=== PATIENT | female | born 2000 | race American Indian/Alaskan Native ===

== ENCOUNTER 2019-06-11 08:05 | Outpatient (CLI) | payer MEDICAID ==
[2019-06-11] MEDS ORDERED: LACTATED RINGERS 500 ML IV ONE (08:12)
[2019-06-11 08:28] VITALS: BP 105/55
[2019-06-11] MEDS ORDERED: BRETHINE SUB-Q ONE (09:17)
[2019-06-11 10:13] LABS: Bacteria,Urine 1+ /HPF (Negative); Bilirubin,Urine NEG (Negative); Blood,Urine NEG (Negative); Color,Urine Yellow (Yellow); Mucus,Urine FEW /HPF; Protein,Urine <15 mg/dL mg/dL (Negative); RBC,Urine < 1.0 /HPF (0.0-6.0); Urobilinogen,Urine < 2.0 mg/dL (<2.0)
== END 2019-06-11 11:15 | disposition home or self-care (01) ==
LOC: TRG 08:05
PROVIDERS: ATTEND Obstetrics & Gynecology
DX: O62.9 Abnormality of forces of labor, unspecified (principal); O26.893 Other specified pregnancy related conditions, third trimester; R10.9 Unspecified abdominal pain; O99.513 Diseases of the respiratory system complicating pregnancy, third trimester; J45.909 Unspecified asthma, uncomplicated; Z3A.30 30 weeks gestation of pregnancy
CPT/HCPCS: 59025; 81001; 96372; J3105; J7120; 96360

== ENCOUNTER 2019-06-15 10:34 | Outpatient (CLI) | payer MEDICAID | END 2019-06-15 13:03 | disposition home or self-care (01) | LOC: LAB 10:34 → TRG 12:35 → LAB 13:03 | PROVIDERS: ATTEND Nurse Practitioner Women's Health | DX: O36.0130 Maternal care for anti-D [Rh] antibodies, third trimester, not applicable or unspecified (principal); Z3A.31 31 weeks gestation of pregnancy | CPT/HCPCS: 86850; 86900; 86901; 96372; J2790 ==

== ENCOUNTER 2019-08-03 17:51 | Outpatient (CLI) | payer MEDICAID ==
[2019-08-03 18:27] VITALS: BP 129/72
[2019-08-03] MEDS ORDERED: oxyCODONE /ACETAMINOPHEN 5-325MG TAB PO PRN (19:02)
== END 2019-08-03 19:33 | disposition home or self-care (01) ==
LOC: TRG 17:51
PROVIDERS: ATTEND Obstetrics & Gynecology
DX: O26.893 Other specified pregnancy related conditions, third trimester (principal); M54.9 Dorsalgia, unspecified; R10.2 Pelvic and perineal pain; R20.2 Paresthesia of skin; O47.1 False labor at or after 37 completed weeks of gestation; O99.013 Anemia complicating pregnancy, third trimester; D64.9 Anemia, unspecified; Z3A.38 38 weeks gestation of pregnancy; Z87.891 Personal history of nicotine dependence
CPT/HCPCS: 99212; G0463

== ENCOUNTER 2019-08-10 20:08 | Outpatient (CLI) | payer MEDICAID ==
[2019-08-10 20:23] VITALS: BP 121/66
== END 2019-08-10 21:15 | disposition home or self-care (01) ==
LOC: TRG 20:08
PROVIDERS: ATTEND Obstetrics & Gynecology
DX: Z53.9 Procedure and treatment not carried out, unspecified reason (principal)
CPT/HCPCS: Q0177

== ENCOUNTER 2019-08-15 06:41 | Outpatient (CLI) | payer MEDICAID ==
[2019-08-15 07:33] VITALS: BP 123/68
== END 2019-08-15 09:20 | disposition home or self-care (01) ==
LOC: TRG 06:41
PROVIDERS: ATTEND Obstetrics & Gynecology
DX: O26.893 Other specified pregnancy related conditions, third trimester (principal); R10.9 Unspecified abdominal pain; Z3A.40 40 weeks gestation of pregnancy

== ENCOUNTER 2019-08-17 19:09 | Outpatient (CLI) | payer MEDICAID ==
[2019-08-17 19:22] VITALS: BP 143/83
== END 2019-08-17 21:45 | disposition home or self-care (01) ==
LOC: TRG 19:09
PROVIDERS: ATTEND Obstetrics & Gynecology
DX: O26.893 Other specified pregnancy related conditions, third trimester (principal); M54.9 Dorsalgia, unspecified; Z3A.40 40 weeks gestation of pregnancy
CPT/HCPCS: 59025; Q0177

== ENCOUNTER 2019-08-18 03:51 | Inpatient (IN) | payer MEDICAID ==
[2019-08-18] MEDS ORDERED: BUTORPHANOL 2 MG/1 ML INJ IV PRN (04:37)
[2019-08-18] MEDS ORDERED: AMPICILLIN/NS 2 GM/100 ML 2 GM/100 ML BAG IV ONE (04:38)
[2019-08-18 05:05] LABS: Hematocrit 34.9 % (30.3-42.9); Hemoglobin 11.2 gm/dl (10.1-14.3); Mean Corpuscular HGB Conc 32 % (30-34); Mean Corpuscular Volume 82 fl (79-97); Platelet Count 153 K/mm3 (140-440); Red Blood Count 4.28 M/mm3 (3.65-5.03); Red Cell Distribution Width 15.4 % (13.2-15.2)
[2019-08-18] MEDS: LACTATED RINGERS 1,000 ML IV SCH ×2 (05:37→17:19)
[2019-08-18] MEDS ORDERED: ePHEDrine SULFATE 50 MG/1 ML INJ IV PRN (06:30)
[2019-08-18] MEDS ORDERED: NALOXONE 2 MG/2 ML INJ IV PRN (06:30)
[2019-08-18] MEDS ORDERED: ePHEDrine SULFATE 50 MG/1 ML INJ ONE (06:32)
--- NOTE | 2019-08-18 06:32 | Anesthesia Consultation ---
Anesthesia Consult and Med Hx Date of service: 08/18/19 - Airway Anesthetic Teeth Evaluation: Good ROM Head & Neck: Adequate Mental/Hyoid Distance: Adequate Mallampati Class: Class II Intubation Access Assessment: Probably Good - Pulmonary Exam CTA: Yes - Cardiac Exam Cardiac Exam: RRR - Pre-Operative Health Status ASA Pre-Surgery Classification: ASA2 Proposed Anesthetic Plan: Epidural - Pulmonary Hx Smoking: No Hx Asthma: Yes Hx Respiratory Symptoms: No SOB: No COPD: No Home Oxygen Therapy: No Hx Pneumonia: No Hx Sleep Apnea: No - Cardiovascular System Hx Hypertension: No Hx Coronary Artery Disease: No Hx Heart Attack/AMI: No Hx Angina: No Hx Percutaneous Transluminal Coronary Angioplasty (PTCA): No Hx Cardia Arrhythmia: No Hx Pacemaker: No Hx Internal Defibrillator: No Hx Valvular Heart Disease: No Hx Heart Murmur: No Hx Peripheral Vascular Disease: No - Central Nervous System Hx Neuromuscular Disorder: No Hx Seizures: No CVA: No Hx Back Pain: No Hx Psychiatric Problems: No - Gastrointestinal Hx Ulcer: No Hx Gastroesophageal Reflux Disease: No - Endocrine Hx Renal Disease: No Hx End Stage Renal Disease: No Hx Cirrhosis: No Hx Liver Disease: No Hx Insulin Dependent Diabetes: No Hx Non-Insulin Dependent Diabetes: No Hx Thyroid Disease: No Hx Hypothyroidism: No Hx Hyperthyroidism: No - Hematic Hx Anemia: Yes (With current ) Hx Sickle Cell Disease: No - Other Systems Hx Alcohol Use: No Hx Substance Use: No Hx Cancer: No Hx Obesity: No
[2019-08-18] MEDS: fentaNYL-BUPIV 2 MCG/ML-0.125% 200 MCG/100 ML BAG EPIDURAL SCH ×2 (08:01→15:38)
[2019-08-18] MEDS: AMPICILLIN/NS 1 GM/50 ML 1 GM/50 ML BAG IV SCH ×2 (11:01→15:45)
--- NOTE | 2019-08-18 11:48 | History and Physical Report ---
History of Present Illness Date of examination: 08/18/19 Date of admission: 08/18/19 04:53 Chief complaint: Intense labor pains History of present illness: Kylah Fontanez is a 18yo AA Fe ROBERT 08/14/2019 (LMP) 40weeks 4 days who presents today in active labor. Pt initiated late care with [facility] at 16w 4d. This is a teen . She is obese with BMI 38.3. She has a known hx of Asthma (last asthma attack over 4 years ago). She received Rhogam for RH negative status on 06/15/19. Pt took D3 for vitamin D deficiency. She had an elevated 1 hr GTT 160 followed by a normal 3hr GTT (97, 158, 111, 109). 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 denies: smoking, alcohol abuse, prescription drug abuse, IV drug use - Obstetrical History Expected Date of Delivery: 08/14/19 Actual Gestation: 40 Week(s) 4 Day(s) : 3 Para: 0 Hx # Term Pregnancies: 0 Number of Pregnancies: 0 Spontaneous Abortions: 2 Induced : 0 Number of Living Children: 0 Medications and Allergies Allergies Allergy/AdvReac Type Severity Reaction Status Date / Time No Known Allergies Allergy Verified 08/18/19 04:36 Home Medications Medication Instructions Recorded Confirmed Last Taken Type Vitamin 1 tab PO DAILY 08/15/19 08/17/19 08/15/19 07:00 History Iron 1 tab PO DAILY 08/17/19 08/17/19 1 Week Ago History ~08/10/19 1 tab Active Meds: Active Medications Butorphanol Tartrate (Stadol) 2 mg IV Q2H PRN PRN Reason: Labor Pain Last Admin: 08/18/19 05:31 Dose: 2 mg Documented by: Ephedrine Sulfate (Ephedrine Sulfate) 10 mg IV Q2M PRN PRN Reason: Hypotension Lactated Ringer's (Lactated Ringers) 1,000 mls @ 125 mls/hr IV DIRECT SEAN Last Admin: 08/18/19 05:37 Dose: 125 mls/hr Documented by: Ampicillin Sodium (Ampicillin/Ns 1 Gm/50 Ml) 1 gm in 50 mls @ 100 mls/hr IV Q4HR SEAN; Protocol Last Admin: 08/18/19 11:01 Dose: 100 mls/hr Documented by: Fentanyl/Bupivacaine/Sodium Chlor (Fentanyl-Bupiv 2 Mcg/Ml-0.125%) 200 mcg in 100 mls @ 12 mls/hr EPIDURAL TITR SEAN; Protocol Last Admin: 08/18/19 08:01 Dose: 12 mls/hr Documented by: Oxytocin/Sodium Chloride (Pitocin/Ns 30 Unit/500ml) 30 units in 500 mls @ 4 mls/hr IV TITR SEAN; Protocol Naloxone HCl (Naloxone) 0.2 mg IV Q5M PRN PRN Reason: Respiratory sedation Review of Systems Eyes: normal appearance Cardiovascular: no chest pain, no shortness of breath Respiratory: no shortness of breath Breasts: normal Gastrointestinal: no nausea, no vomiting, no diarrhea, no constipation Genitourinary: normal appearance, contractions, no leakage of fluid, no genital sores Integumentary: no rash, no sores, no lesions - Vital Signs Vital signs: Vital Signs Pulse BP 91 H 147/99 08/18/19 05:05 08/18/19 05:05 Temp Pulse Resp BP Pulse Ox 97.9 F 80 18 118/57 97 08/18/19 07:59 08/18/19 11:39 08/18/19 07:59 08/18/19 11:28 08/18/19 11:39 - Physical Exam Breasts: Positive: normal Cardiovascular: Regular rate, Normal S1, Normal S2, No murmurs Lungs: Positive: Clear to auscultation, Normal air movement Abdomen: Positive: normal appearance, normal bowel sounds Genitourinary (Female): Positive: normal external genitalia, normal perenium Vulva: both: normal Vagina: Positive: other (Clear fluid noted with exam) Uterus: Positive: enlarged (gravid) Anus/Rectum: Positive: normal perianal skin Extremities: Positive: normal Deep Tendon Reflex Grade: Normal +2 - Obstetrical FHR: auscultation normal Uterine Contraction Monitor Mode: External Cervical Dilatation: 6 (4 on admission) Cervical Effacement Percentage: 80 station: -2 Uterine Contraction Frequency (min): 5-7 Uterine Contraction Pattern: Regular Uterine Tone Measurement Phase: Resting Uterine Contraction Intensity: Moderate Results Result Diagrams: 08/18/19 04:20 Abnormal lab results 08/18/19 Range/Units 04:20 WBC 11.3 H (4.5-11.0) K/mm3 MCH 26 L (28-32) pg RDW 15.4 H (13.2-15.2) % All other labs normal. Assessment and Plan A: IUP at 40w4d Active labor SROM 08/18 @06:51, clear Category 1 tracing Comfortable with epidural GBS Positive P: Routine labor orders GBS prophylaxis Pitocin augmentation Anticipate
[2019-08-18] MEDS ORDERED: OXYTOCIN DRIP 30 UNITS/500 ML BAG IV SCH (12:00)
[2019-08-18] MEDS ORDERED: OXYTOCIN 20 UNIT/1000ML DRIP 20,000 MILLIUNITS/1,000 ML BAG IV ONE (15:31)
--- NOTE | 2019-08-18 20:17 | Procedure Note ---
OB Delivery Note - Delivery Date of Delivery: 08/18/19 (19:51) Surgeon: KAILA CAMACHO ([place]) Estimated blood loss: 300cc - Vaginal Delivery presentation: vertex Delivery position: OA Intrapartum events: meconium (Thick) Delivery induction: none Delivery augmentation: rupture of membranes (AROM of forebag at the start of pushing), pitocin Delivery monitor: external FHT, external uterine Route of delivery: (19:51) Delivery placenta: spontaneous (19:53) Delivery cord: 3 umbilical vessels Episiotomy: none Delivery laceration: 1st degree (Small; approximates well. Left unrepaired) Anesthesia: epidural Delivery comments: viable female infant SOCORRO position at 19:51. Cord clamped, cut, and limp non-vigorous infant immediately to prewarmed RW for assessment by MIGEL nurse, NICU, and RT for thick meconium stained fluid. Cord blood collected per protocol. Spontaneous brar delivery of intact meconium stained placenta at 1 9:53. Boggy uterus massaged firm. Approximately 100cc clear urine emptied from bladder with red rubber catheter. Then FF@U-2 bleeding small. Small first degree laceration approximates well. Left unrepaired. EBL 300cc. and mother left in stable condition in L&D. - Infant A at 1 minute: 7 at 5 minutes: 8 Infant Gender: Female (3696 grams, 8lbs 2oz)
[2019-08-18] MEDS ORDERED: ACETAMINOPHEN 325 MG TAB PO PRN (20:21)
[2019-08-18] MEDS ORDERED: MAGNESIUM HYDROXIDE (MOM) ORAL LIQD UDC PO PRN (20:21)
[2019-08-18] MEDS ORDERED: LANOLIN/ZINC/DIMETHICONE (LANSINOH) 7 GM TP PRN (20:21)
[2019-08-18] MEDS ORDERED: PROMETHAZINE 25 MG TAB PO PRN (20:21)
[2019-08-18] MEDS ORDERED: diphenhydrAMINE 25 MG CAP PO PRN (20:21)
[2019-08-18] MEDS ORDERED: ONDANSETRON 4 MG/2 ML INJ IV PRN (20:21)
[2019-08-18] MEDS ORDERED: WITCH HAZEL/ GLYCERIN PAD TP PRN (20:21)
[2019-08-18] MEDS: HYDROcodone/ACETAMINOPHEN 5-325 MG TAB PO PRN (20:39)
[2019-08-18] MEDS ORDERED: BENZOCAINE/MENTHOL 20/0.5% TOP SPRAY 56 GM TP PRN (22:08)
[2019-08-18] MEDS: IBUPROFEN 600 MG TAB PO SCH (22:23)
[2019-08-19] MEDS: HYDROcodone/ACETAMINOPHEN 5-325 MG TAB PO PRN (02:26)
[2019-08-19 09:00] LABS: Hematocrit 25.5 % (30.3-42.9); Hemoglobin 8.3 gm/dl (10.1-14.3)
--- NOTE | 2019-08-19 09:43 | Progress Note ---
Assessment and Plan - Patient Problems (1) (normal spontaneous vaginal delivery) Current Visit: Yes Status: Acute Plan to address problem: Continue routine PP orders Anticipate d/c home tomorrow (2) BMI 38.0-38.9,adult Current Visit: Yes Status: Acute (3) HSV-2 seropositive Current Visit: Yes Status: Acute Subjective - Subjective Date of service: 08/19/19 Principal diagnosis: ; PPD#1; Morbid obesity Interval history: See admission H & P; OB delivery summary and PP progress notes Patient reports: appetite normal, voiding normally, pain well controlled, fl atus, ambulating normally, no bowel movement : doing well (bottle feeding) Objective - Vital Signs Latest vital signs: Vital Signs Temp Pulse Resp BP BP Pulse Ox 08/19/19 08:08 97.2 F L 61 18 117/73 08/19/19 06:13 97.9 F 85 18 103/53 98 08/19/19 01:44 98.8 F 100 H 20 97/55 99 08/18/19 22:00 99.1 F 08/18/19 21:43 77 125/70 99 08/18/19 21:01 69 137/67 08/18/19 20:58 67 135/63 08/18/19 20:46 72 147/69 08/18/19 20:45 98.9 F 08/18/19 20:39 71 18 135/63 08/18/19 20:22 87 130/66 08/18/19 20:15 86 142/72 08/18/19 20:07 83 L 08/18/19 20:06 86 100 08/18/19 20:05 83 115/55 08/18/19 20:01 100 H 100 08/18/19 19:58 86 124/58 08/18/19 19:56 89 100 08/18/19 19:51 95 H 100 08/18/19 19:46 95 H 94 08/18/19 19:40 79 100 08/18/19 19:35 91 H 98 08/18/19 19:31 74 121/57 08/18/19 19:30 91 H 100 08/18/19 19:28 69 80 L 08/18/19 19:24 72 100 08/18/19 19:19 80 100 08/18/19 19:15 65 72 L 08/18/19 19:14 68 70 L 08/18/19 19:13 71 98/50 08/18/19 19:09 81 99 08/18/19 19:04 93 H 99 08/18/19 19:00 83 95/45 08/18/19 18:59 85 97 08/18/19 18:57 121 H 79 L 08/18/19 18:54 82 97 08/18/19 18:49 78 98 08/18/19 18:44 88 134/87 99 08/18/19 18:39 77 98 08/18/19 18:34 85 98 08/18/19 18:29 77 98 08/18/19 18:28 89 91/52 08/18/19 18:24 79 97 08/18/19 18:19 87 97 08/18/19 18:14 80 92/52 95 08/18/19 18:09 72 96 08/18/19 18:04 75 96 08/18/19 18:00 73 128/58 08/18/19 17:59 80 97 08/18/19 17:58 78 94 08/18/19 17:54 75 96 08/18/19 17:49 80 97 08/18/19 17:44 80 118/58 08/18/19 17:43 80 97 08/18/19 17:38 79 98 08/18/19 17:33 84 98 08/18/19 17:30 82 119/56 08/18/19 17:28 88 98 08/18/19 17:23 75 97 08/18/19 17:18 98.4 F 82 18 97 08/18/19 17:14 82 119/56 08/18/19 17:13 80 98 08/18/19 17:08 81 98 08/18/19 17:03 76 98 08/18/19 16:58 81 98 08/18/19 16:53 74 98 08/18/19 16:49 74 98 08/18/19 16:43 70 125/53 98 08/18/19 16:39 65 100 08/18/19 16:33 66 100 08/18/19 16:29 72 98 08/18/19 16:28 64 117/53 08/18/19 16:23 66 100 08/18/19 16:18 68 100 08/18/19 16:14 67 111/51 100 08/18/19 16:08 71 100 08/18/19 16:03 84 100 08/18/19 15:59 77 127/67 08/18/19 15:58 85 96 08/18/19 15:54 79 100 08/18/19 15:48 82 100 08/18/19 15:44 81 125/61 08/18/19 15:43 70 100 08/18/19 15:39 89 100 08/18/19 15:34 97 H 100 08/18/19 15:30 96 H 134/69 08/18/19 15:28 87 100 08/18/19 15:23 98 H 100 08/18/19 15:19 105 H 100 08/18/19 15:14 99 H 98 08/18/19 15:13 97 H 118/57 08/18/19 15:08 91 H 100 08/18/19 15:04 91 H 100 08/18/19 15:00 88 98/55 08/18/19 14:58 89 100 08/18/19 14:54 91 H 100 08/18/19 14:48 90 100 08/18/19 14:43 94 H 123/58 100 08/18/19 14:39 96 H 99 08/18/19 14:34 87 100 08/18/19 14:29 85 100 08/18/19 14:28 86 122/58 08/18/19 14:23 87 100 08/18/19 14:18 85 100 08/18/19 14:14 83 123/57 08/18/19 14:13 85 100 08/18/19 14:09 87 100 08/18/19 14:04 89 100 08/18/19 13:59 83 100 08/18/19 13:58 83 110/54 08/18/19 13:54 86 100 08/18/19 13:49 86 100 08/18/19 13:44 93 H 99 08/18/19 13:43 98 H 109/53 08/18/19 13:39 90 98 08/18/19 13:34 88 98 08/18/19 13:29 85 98 08/18/19 13:28 88 100/49 08/18/19 13:24 93 H 97 08/18/19 13:19 90 98 08/18/19 13:14 84 97 08/18/19 13:13 83 101/55 08/18/19 13:09 82 98 08/18/19 13:04 82 99 08/18/19 12:59 79 98 08/18/19 12:58 79 120/57 08/18/19 12:54 86 99 08/18/19 12:49 88 98 08/18/19 12:44 78 117/56 99 08/18/19 12:39 80 99 08/18/19 12:34 84 98 08/18/19 12:29 86 99 08/18/19 12:28 85 117/58 08/18/19 12:24 80 99 08/18/19 12:19 84 99 08/18/19 12:14 84 120/59 99 08/18/19 12:09 85 99 08/18/19 12:08 97.9 F 87 18 99 08/18/19 12:04 82 99 08/18/19 11:59 83 100 08/18/19 11:58 83 124/58 08/18/19 11:54 87 98 08/18/19 11:49 81 98 08/18/19 11:44 78 113/54 98 08/18/19 11:39 80 97 08/18/19 11:34 78 97 08/18/19 11:29 77 98 08/18/19 11:28 80 118/57 08/18/19 11:24 88 99 08/18/19 11:19 79 100 08/18/19 11:13 89 100 08/18/19 11:09 84 100 08/18/19 11:04 94 H 98 08/18/19 11:00 90 127/58 08/18/19 10:59 91 H 100 08/18/19 10:58 88 92/43 08/18/19 10:54 81 100 08/18/19 10:49 89 100 08/18/19 10:45 77 112/55 08/18/19 10:44 88 100 08/18/19 10:39 85 100 08/18/19 10:34 79 100 08/18/19 10:29 93 H 111/51 100 08/18/19 10:16 84 100 08/18/19 10:14 78 113/56 08/18/19 10:11 90 100 08/18/19 10:06 88 100 08/18/19 10:01 91 H 100 08/18/19 09:59 86 98/53 08/18/19 09:56 94 H 100 08/18/19 09:51 80 100 08/18/19 09:46 90 100 08/18/19 09:43 86 115/56 Intake and Output 08/18/19 08/19/19 08/19/19 23:59 07:59 15:59 Intake Total 25.6 600 480 Output Total 450 400 Balance -424.4 200 480 Intake: IV 25.6 PITOCin/NS 30 UNIT/500ML 25.6 30 units In 500 ml @ 4 mls/hr IV TITR SEAN Rx#: [id number] Oral 240 480 Intake, Free Water 360 Output: Urine 450 400 Indwelling Catheter 450 Void 400 Other: Total, Intake Amount 240 480 Total, Output Amount 350 400 # Voids Indwelling Catheter 1 Estimated Blood Loss 300 - Exam Breasts: Present: normal Cardiovascular: Present: Regular rate Lungs: Present: Normal air movement Abdomen: Present: soft Uterus: Present: firm, fundal height below umbilicus (U-1) Extremities: Present: edema (Blair ankles/feet) Deep Tendon Reflex Grade: Normal +2 Incision: Present: other (1st degree laceration healing as expected) - Labs Labs: Abnormal lab results 08/19/19 Range/Units 08:50 Hgb 8.3 L (10.1-14.3) gm/dl Hct 25.5 L D (30.3-42.9) %
[2019-08-19] MEDS: IBUPROFEN 600 MG TAB PO SCH ×2 (09:49→16:21)
--- NOTE | 2019-08-19 09:52 | Discharge Summary ---
Providers - Providers Date of Admission: 08/18/19 04:53 Date of discharge: 08/20/19 (1200) Attending physician: GRECIA JAY MD Primary care physician: GRECIA JAY MD Hospitalization Reason for admission: active labor, IUP at term Delivery: Episiotomy: none Laceration: 1st degree (healing as expected) Other procedures: none baby: female Hospital course: See admission H & P; OB delivery summary and PP progress notes Condition at discharge: Good Disposition: DC-01 TO HOME OR SELFCARE - Discharge Diagnoses (1) (normal spontaneous vaginal delivery) Status: Acute (2) BMI 38.0-38.9,adult Status: Acute (3) HSV-2 seropositive Status: Acute Plan - Provider Discharge Summary Activity: routine, no sex for 6 weeks, no heavy lifting 4 weeks, no strenuous exercise Diet: routine Instructions: routine Additional instructions: [] Smoking cessation referral if applicable(refer to patient education folder for contact #) [] Refer to [facility]'s [facility] Booklet Call your doctor immediately for: * Fever > 100.5 * Heavy vaginal bleeding ( >1 pad per hour) * Severe persistent headache * Shortness of breath * Reddened, hot, painful area to leg or breast * Drainage or odor from incision. * Keep laceration clean and dry at all times and follow doctor's instructions regarding bathing/showering - Follow up plan Follow up: GRECIA JAY MD [Primary Care Provider] - 6 Weeks
[2019-08-20] MEDS: IBUPROFEN 600 MG TAB PO SCH ×2 (00:30→05:42)
[2019-08-20] MEDS: HYDROcodone/ACETAMINOPHEN 5-325 MG TAB PO PRN (09:45)
[2019-08-20 12:36] VITALS: BP 122/63
== END 2019-08-20 18:34 | disposition home or self-care (01) | DRG 774 ==
LOC: TRG 03:51 → LD 04:53 → TRG 04:53 → OB 04:53 → LD 04:53 → OB 22:17
PROVIDERS: ADMIT Obstetrics & Gynecology; ATTEND Obstetrics & Gynecology
PROC: 10E0XZZ Delivery of Products of Conception, External Approach (ICD-10-PCS; principal; 2019-08-18)
PROC: 3E0R3BZ Introduction of Anesthetic Agent into Spinal Canal, Percutaneous Approach (ICD-10-PCS; 2019-08-18)
PROC: 00HU33Z Insertion of Infusion Device into Spinal Canal, Percutaneous Approach (ICD-10-PCS; 2019-08-18)
PROC: 3E0234Z Introduction of Serum, Toxoid and Vaccine into Muscle, Percutaneous Approach (ICD-10-PCS; 2019-08-19)
DX: O98.52 Other viral diseases complicating childbirth (principal); B00.9 Herpesviral infection, unspecified; O77.0 Labor and delivery complicated by meconium in amniotic fluid; O99.52 Diseases of the respiratory system complicating childbirth; J45.909 Unspecified asthma, uncomplicated; O99.824 Streptococcus B carrier state complicating childbirth; O70.0 First degree perineal laceration during delivery; Z3A.40 40 weeks gestation of pregnancy; Z37.0 Single live birth; Z82.49 Family history of ischemic heart disease and other diseases of the circulatory system; Z83.3 Family history of diabetes mellitus; Z79.899 Other long term (current) drug therapy
CPT/HCPCS: 36415; 59025; 85014; 85018; 85027; 85461; 86850; 86870; 86900; 86901; G0378; J0290; J0595; J2590; J2790; J7120; Q0177